=== PATIENT | male | born 1965 | race Caucasian/White ===

== ENCOUNTER 2019-04-05 13:22 | Inpatient (IN) | payer OTHER ==
[2019-04-05 17:24] VITALS: BMI 25.3
--- NOTE | 2019-04-05 19:14 | HP ---
CIWA Score Nausea/Vomitin-No Nausea/No Vomiting Muscle Tremors: None Anxiety: 4-Mod. Anxious/Guarded Agitation: 0-Normal Activity Paroxysmal Sweats: No Perspiration Orientation: 1-Uncertain about Date Tacttile Disturbances: 0-None Auditory Disturbances: 2-Mild Harshness/Frighten Visual Disturbances: 3-Moderate Sensitivity Headache: 0-None Present CIWA-Ar Total Score: 10 - Admission Criteria OASAS Guidelines: Admission for Medically Managed Detox: Requires at least one of the followin. CIWA greater than 12 2. Seizures within the past 24 hours 3. Delirium tremens within the past 24 hours 4. Hallucinations within the past 24 hours 5. Acute intervention needed for co occurring medical disorder 6. Acute intervention needed for co occurring psychiatric disorder 7. Severe withdrawal that cannot be handled at a lower level of care (continued vomiting, continued diarrhea, abnormal vital signs) requiring intravenous medication and/or fluids 8. Admission ROS [facility] Allergies/Adverse Reactions: Allergies Allergy/AdvReac Type Severity Reaction Status Date / Time peach Allergy Verified 04/05/19 17:19 peanut Allergy Verified 04/05/19 17:19 History of Present Illness: Search Terms: sadi lazaro, 1965 Search Date: 04/05/2019 07:07:10 PM This report was requested by: Neeta June | Reference #: [id number] There are no results for the search terms that you entered. pt here requesting detox from etoh use , reports daily use 2-3 pints vodka and 2 x 6-pk beer x many years , first age of use 16 , longest sobriety 4 months while incarcerated ( 2018 ) , latest use this morning , current symptoms as above . Reports he starts drinking " anytime " , reports tremors if not drinking , + w/d seizure 1 year ago , denies blackouts , + falls while intoxicated , most recently " I don't know ". Pt is poor historian , irritable/ hostile . Reports he went to [facility] ( 16 ) this morning , per pt was told there were no beds available and was referred to this facility . [facility] Det[facility] x 2 , rehab x1 denies driving . cocaine : " I don't count it , I just smoke it , I use a lot everyday " , first age of use 21 , denies IVDU cannabis : " same thing " first age of use 16 . tobacco : 1/2 ppd . denies other illicits , denies benzo use , denies buprenorphine. PMhx : asthma , COPD , GERD PSHX : denies PSych : manic depression , suicide attempts x 2 most recently 2 years ago , denies current SI / HI . SHX : homeless , unemployed Exam Limitations: Clinical Condition - Ebola screening Have you traveled outside of the country in the last 21 days: No Have you had contact with anyone from an Ebola affected area: No Do you have a fever: No - Review of Systems Constitutional: Loss of Appetite, Unintentional Wgt. Loss (reports weight loss , when askwed how much , states " I don't know ") EENT: reports: Other (denies vision loss) Respiratory: reports: Cough (cough x 1 day), SOB with Exertion Cardiac: reports: No Symptoms Reported GI: reports: See HPI, Poor Appetite : reports: No Symptoms Reported Musculoskeletal: reports: No Symptoms Reported Integumentary: reports: No Symptoms Reported Neuro: reports: No Symptoms reported Endocrine: reports: No Symptoms Reported Psychiatric: reports: Orientated x3, Agitated, Anxious Patient History - Smoking Cessation Smoking history: Current every day smoker Have you smoked in the past 12 months: Yes Hx Chewing Tobacco Use: No Initiated information on smoking cessation: No - Substances abused Alcohol Substance route: Oral Frequency: Daily Amount used: 4pints of vodka and beer mixed Age of first use: 16 Date of last use: 04/05/19 Cocaine Substance route: Inhalation Frequency: Daily Amount used: 50-100$/day Age of first use: 19 Date of last use: 04/05/19 Marijuana/Hashish Substance route: Inhalation Frequency: Daily Family Disease History - Family Disease History Family History: Denies (states he has no children) Admission Physical Exam BHS - Vital Signs Vital Signs: Vital Signs - 24 hr 04/05/19 04/05/19 17:18 17:38 Temperature 97.6 F 97.6 F Pulse Rate 73 73 Respiratory 16 16 Rate Blood Pressure 139/69 139/69 - Physical General Appearance: Yes: Mild Distress, Irritable, Anxious HEENTM: Yes: EOMI, Hearing grossly Normal, Normocephalic, Nasal Congestion, Muffled/Hoarse Voice Respiratory: Yes: No Respiratory Distress, No Accessory Muscle Use, Wheezing ( Heriberto lung arias) Neck: Yes: No masses,lesions,Nodules, Trachea in good position Cardiology: Yes: Regular Rhythm, Regular Rate, S1, S2 Abdominal: Yes: Soft, Protuberent Back: Yes: Normal Inspection Musculoskeletal: Yes: full range of Motion Extremities: Yes: Normal Range of Motion, Non-Tender Neurological: Yes: Fully Oriented, Alert, Disoriented, Depressed Affect Integumentary: Yes: Dry, Warm, Other (left gt toe and 2nd toe superificial excoriation dorsal aspect , pt states " from my other sneakers ") - Diagnostic (1) Cocaine use disorder Current Visit: Yes Status: Chronic (2) Cannabis dependence Current Visit: Yes Status: Chronic (3) Nicotine dependence Current Visit: Yes Status: Chronic Qualifiers: Nicotine product type: cigarettes (4) Alcohol withdrawal Current Visit: Yes Status: Acute Qualifiers: Complication of substance-induced condition: uncomplicated Qualified Code(s ): F10.230 - Alcohol dependence with withdrawal, uncomplicated Breathalyzer - Breathalyzer Breathalyzer: 0 Urine Drug Screen - Test Device Lot number: [id number] Expiration date: 12/31/20 - Control Is test valid?: Yes - Results Drug screen NEGATIVE: No Urine drug screen results: THC-Marijuana, ZOIE-Cocaine, BZO-Benzodiazepines, BUP- Suboxone Inpatient Rehab Admission - Rehab Decision to Admit Inpatient rehab admission?: No
[2019-04-05] MEDS ORDERED: ALBUTEROL SO4 2.5/IPRATROPIUM 0.5 INH SOL 3 ML VIAL.NEB. NEB PRN (19:36)
[2019-04-05] MEDS ORDERED: MAGNESIUM CITRATE 300 ML BOTTLE PO PRN (19:37)
[2019-04-05] MEDS ORDERED: IBUPROFEN 400 MG TABLET (FP) PO PRN (19:37)
[2019-04-05] MEDS ORDERED: BISMUTH SUBSALICYLATE 524 MG/30 ML UD PO PRN (19:37)
[2019-04-05] MEDS ORDERED: ACETAMINOPHEN 325 MG TABLET (FP) PO PRN ×2 (19:37)
[2019-04-05] MEDS ORDERED: MAGNESIUM HYDROX 2400MG/30ML ORAL SUSPENSION 30 ML CUP PO PRN (19:37)
[2019-04-05] MEDS ORDERED: guaiFENesin 200 MG/10 ML 10 ML UNIT-DOSE CUPS PO PRN (19:37)
[2019-04-05] MEDS ORDERED: MAG HYDROX/AL HYDROX/SIMETH 30 ML UNIT-DOSE CUP PO PRN (19:37)
[2019-04-05] MEDS ORDERED: P-EPHED 60MG/TRIPROLIDI 2.5MG TABLET PO PRN (19:37)
[2019-04-05] MEDS ORDERED: MENTHOL/PHENOL 1 EACH UD MM PRN (19:37)
[2019-04-05] MEDS ORDERED: NICOTINE POLACRILEX 2 MG GUM BUC PRN (19:37)
[2019-04-05] MEDS ORDERED: chlordiazePOXIDE HCL 10 MG CAPSULE PO PRN (19:41)
[2019-04-05] MEDS: THIAMINE HCL 100 MG TABLET (FP) PO SCH (22:09)
[2019-04-05] MEDS: chlordiazePOXIDE HCL 25 MG CAPSULE PO SCH (22:09)
[2019-04-05] MEDS: MELATONIN 5 MG TABLETS PO PRN (22:09)
[2019-04-05] MEDS: BACITRACIN/POLYMYXIN B SULFATE 15 GM TUBE TP SCH (22:38)
[2019-04-06] MEDS: chlordiazePOXIDE HCL 25 MG CAPSULE PO SCH ×3 (06:25→22:15)
[2019-04-06] MEDS: PRENATAL VITAMINS W/ FOLIC ACID TABLET (FP) PO SCH (09:31)
--- NOTE | 2019-04-06 11:10 | PN ---
S CIWA - CIWA Score Nausea/Vomitin-No Nausea/No Vomiting Muscle Tremors: 3 Anxiety: 3 Agitation: 4-Moderately Restless Paroxysmal Sweats: 3 Orientation: 0-Oriented Tacttile Disturbances: 0-None Auditory Disturbances: 0-None Visual Disturbances: 0-None Headache: 0-None Present CIWA-Ar Total Score: 13 BHS Progress Note (SOAP) Subjective: sweats mild shakes irritable agitation body aches Objective: 04/06/19 10:47 Vital Signs Temperature 97.7 F 04/06/19 09:10 Pulse Rate 60 04/06/19 09:10 Respiratory Rate 18 04/06/19 09:10 Blood Pressure 135/83 04/06/19 09:10 O2 Sat by Pulse Oximetry (%) labs pending aaox3 ambulating no acute distress Assessment: 04/06/19 11:10 withdrawal sx Plan: continue detox pending labs
[2019-04-06] MEDS: BACITRACIN/POLYMYXIN B SULFATE 15 GM TUBE TP SCH ×2 (11:35→22:15)
--- NOTE | 2019-04-06 11:48 | CONSULT ---
[facility] Psychiatric Consult - Data Date of interview: 04/06/19 Psychiatric History: Patient was approached at bedside. Told publicity writer:" I cannot get up right now but I will talk later"
[2019-04-06 12:17] LABS: ALBUMIN 3.1 g/dl (3.4-5.0); BILIRUBIN,TOTAL 0.3 mg/dL (0.2-1); BLOOD UREA NITROGEN 12.6 mg/dL (7-18); CALCIUM 8.8 mg/dL (8.5-10.1); CREATININE 0.9 mg/dL (0.55-1.3); TOT PROT 5.3 g/dl (6.4-8.2)
[2019-04-06 12:26] LABS: HEMATOCRIT 40.5 % (35.4-49); HEMOGLOBIN 13.5 GM/dL (11.7-16.9); MCH 32.1 pg (25.7-33.7); MCHC 33.3 g/dl (32.0-35.9); MEAN CELL VOLUME 96.3 fl (80-96); MEAN PLT VOLUME 8.3 fl (7.5-11.1); PLATELET COUNT 211 K/MM3 (134-434); RDW 15.3 % (11.9-15.9); WHITE BLOOD COUNT 5.7 K/mm3 (4.0-10.0)
[2019-04-06] MEDS: THIAMINE HCL 100 MG TABLET (FP) PO SCH (22:15)
[2019-04-06] MEDS: MELATONIN 5 MG TABLETS PO PRN (22:16)
[2019-04-07] MEDS: chlordiazePOXIDE 5 MG CAPSULE PO SCH ×3 (06:46→21:14)
--- NOTE | 2019-04-07 10:19 | PN ---
S CIWA - CIWA Score Nausea/Vomitin-No Nausea/No Vomiting Muscle Tremors: 3 Anxiety: 2 Agitation: 3 Paroxysmal Sweats: 2 Orientation: 0-Oriented Tacttile Disturbances: 0-None Auditory Disturbances: 0-None Visual Disturbances: 0-None Headache: 0-None Present CIWA-Ar Total Score: 10 S Progress Note (SOAP) Subjective: sweats shakes irritable agitation anxiety Objective: 04/07/19 10:18 Vital Signs Temperature 97.5 F L 04/07/19 09:20 Pulse Rate 54 L 04/07/19 09:20 Respiratory Rate 18 04/07/19 09:20 Blood Pressure 131/78 04/07/19 09:20 O2 Sat by Pulse Oximetry (%) Laboratory Tests 04/06/19 04/06/19 04/06/19 08:30 08:30 08:30 WBC 5.7 RBC 4.20 Hgb 13.5 Hct 40.5 MCV 96.3 H MCH 32.1 MCHC 33.3 RDW 15.3 Plt Count 211 MPV 8.3 Sodium 143 Potassium 4.0 Chloride 105 Carbon Dioxide 28 Anion Gap 11 BUN 12.6 Creatinine 0.9 Est GFR (CKD-EPI)AfAm 114.21 Est GFR (CKD-EPI)NonAf 98.54 Random Glucose 108 H Calcium 8.8 Total Bilirubin 0.3 AST 17 ALT 32 Alkaline Phosphatase 80 Total Protein 5.3 L Albumin 3.1 L RPR Titer Nonreactive labs noted aaox3 ambulating no acute distress Assessment: 04/07/19 10:18 withdrawals sx Plan: continue detox increase fluids
[2019-04-07] MEDS: PRENATAL VITAMINS W/ FOLIC ACID TABLET (FP) PO SCH (11:28)
[2019-04-07] MEDS: BACITRACIN/POLYMYXIN B SULFATE 15 GM TUBE TP SCH ×2 (11:38→22:25)
--- NOTE | 2019-04-07 17:24 | PN ---
S Progress Note Note: Patient w/ hx of manic depression declined psych consultation earlier today, but requested to see psych, he is ready to talk now. Psych consult ordered.
[2019-04-07] MEDS: hydrOXYzine PAMOATE 25 MG CAPSULE (FP) PO PRN (17:38)
[2019-04-07] MEDS: THIAMINE HCL 100 MG TABLET (FP) PO SCH (22:14)
[2019-04-07] MEDS: MELATONIN 5 MG TABLETS PO PRN (22:15)
[2019-04-08] MEDS ORDERED: chlordiazePOXIDE HCL 10 MG CAPSULE PO PRN
[2019-04-08] MEDS: chlordiazePOXIDE HCL 10 MG CAPSULE PO SCH ×3 (06:27→21:01)
[2019-04-08] MEDS: BACITRACIN/POLYMYXIN B SULFATE 15 GM TUBE TP SCH ×2 (10:42→22:01)
[2019-04-08] MEDS: PRENATAL VITAMINS W/ FOLIC ACID TABLET (FP) PO SCH (10:43)
--- NOTE | 2019-04-08 11:53 | PN ---
[facility] CIWA - CIWA Score Nausea/Vomitin-No Nausea/No Vomiting Muscle Tremors: None Anxiety: 1-Mildly Anxious Agitation: 2 Paroxysmal Sweats: No Perspiration Orientation: 0-Oriented Tacttile Disturbances: 0-None Auditory Disturbances: 0-None Visual Disturbances: 0-None Headache: 0-None Present CIWA-Ar Total Score: 3 BHS Progress Note (SOAP) Subjective: anxiety tired Objective: 04/08/19 11:52 Vital Signs Temperature 97.7 F 04/08/19 09:29 Pulse Rate 49 L 04/08/19 09:29 Respiratory Rate 20 04/08/19 09:29 Blood Pressure 121/68 04/08/19 09:29 O2 Sat by Pulse Oximetry (%) aaox3 ambulating no acute distress Assessment: 04/08/19 11:52 mild withdrawal Plan: continue detox d/c in am
[2019-04-08] MEDS: hydrOXYzine PAMOATE 25 MG CAPSULE (FP) PO PRN ×2 (13:01→22:03)
--- NOTE | 2019-04-08 15:05 | CONSULT ---
[facility] Psychiatric Consult - Data Date of interview: 04/08/19 Admission source: [facility] Identifying data: Mr Aguirre is a 53 years old single male, , unnemployed receving SSI, homeless seeking detox treatment for alcohol, cocaine and cannabis Substance Abuse History: Reports history of alcohol, cocaine and marijuana use. Refer to addiction counselor's summary for further information Medical History: Significant for bronchial asthma/COPD, GERD, history of alcohol related seizure. Smokes 10n cigarettes daily Psychiatric History: Patient was very vague in providing information. Reports being diagnosed with Bipolar Disorder a few years ago. Reports a few psychiatric hospitalizations and claimed he did not recall any location. Reports not receiving outpatient treatment and taking medication for a while. Claims he took Celexa 20 mg/day and Seroquel in the past. Reports 2 previous suicidal attempts via overdose but he was unwilling to provde much details. At present, denies experiencing psychotic, manic symptoms, S/H ideations. However, reports feeling depressed Physical/Sexual Abuse/Trauma History: This section not done due patient disposition Mental Status Exam - Mental Status Exam Alert and Oriented to: Time, Place, Person Cognitive Function: Fair Patient Appearance: Disheveled Mood: Depressed Affect: Appropriate Patient Behavior: Cooperative Speech Pattern: Clear Voice Loudness: Normal Thought Process: Intact, Goal Oriented Hallucinations: Denies Suicidal Ideation: Denies Homicidal Ideation: Denies Insight/Judgement: Poor Muscle strength/Tone: Normal Gait/Station: Normal Psychiatric Findings - Problem List ([place] 1, 2,3) (1) Mood disorder Current Visit: Yes Status: Chronic (2) Bipolar disorder Current Visit: Yes Status: Ruled-out (3) Substance induced mood disorder Current Visit: Yes Status: Acute (4) Uncomplicated alcohol dependence Current Visit: Yes Status: Chronic (5) Cocaine dependence Current Visit: Yes Status: Acute (6) Cannabis dependence Current Visit: Yes Status: Acute (7) Nicotine dependence Current Visit: Yes Status: Chronic Qualifiers: Nicotine product type: cigarettes (8) Bronchial asthma Current Visit: Yes Status: Chronic (9) COPD (chronic obstructive pulmonary disease) Current Visit: Yes Status: Chronic (10) GERD (gastroesophageal reflux disease) Current Visit: Yes Status: Chronic (11) Alcohol related seizure Current Visit: Yes Status: Resolved - Initial Treatment Plan Initial Treatment Plan: 1) Start Celexa 20 mg po daily and Seroquel 100 mg po HS. 2) Continue inpatient detoxification
[2019-04-08] MEDS: CITALOPRAM HYDROBROMIDE 20 MG TABLET (FP) PO SCH (15:39)
[2019-04-08] MEDS: THIAMINE HCL 100 MG TABLET (FP) PO SCH (22:01)
[2019-04-08] MEDS: QUEtiapine FUMARATE 100 MG TABLET (FP) PO SCH (22:01)
[2019-04-09] MEDS ORDERED: chlordiazePOXIDE HCL 10 MG CAPSULE PO ONE (05:00)
[2019-04-09] MEDS: hydrOXYzine PAMOATE 25 MG CAPSULE (FP) PO PRN ×3 (08:51→22:36)
[2019-04-09] MEDS: PRENATAL VITAMINS W/ FOLIC ACID TABLET (FP) PO SCH (11:35)
[2019-04-09] MEDS: CITALOPRAM HYDROBROMIDE 20 MG TABLET (FP) PO SCH (11:35)
[2019-04-09] MEDS: BACITRACIN/POLYMYXIN B SULFATE 15 GM TUBE TP SCH ×2 (11:35→22:33)
--- NOTE | 2019-04-09 15:19 | PN ---
S CIWA - CIWA Score Nausea/Vomitin-No Nausea/No Vomiting Muscle Tremors: None Anxiety: 2 Agitation: 0-Normal Activity Paroxysmal Sweats: 1-Minimal Palms Moist Orientation: 0-Oriented Tacttile Disturbances: 0-None Auditory Disturbances: 0-None Visual Disturbances: 0-None Headache: 0-None Present CIWA-Ar Total Score: 3 BHS Progress Note (SOAP) Subjective: c/o mild sweats and anxiety. Objective: 04/09/19 15:11 Vital Signs 04/09/19 09:13 Pulse Rate 48 L Respiratory 16 Rate Blood Pressure 120/77 Lab Results WBC 5.7 K/mm3 (4.0-10.0) 04/06/19 08:30 RBC 4.20 M/mm3 (4.00-5.60) 04/06/19 08:30 Hgb 13.5 GM/dL (11.7-16.9) 04/06/19 08:30 Hct 40.5 % (35.4-49) 04/06/19 08:30 MCV 96.3 fl (80-96) H 04/06/19 08:30 MCHC 33.3 g/dl (32.0-35.9) 04/06/19 08:30 RDW 15.3 % (11.9-15.9) 04/06/19 08:30 Plt Count 211 K/MM3 (134-434) 04/06/19 08:30 Sodium 143 mmol/L (136-145) 04/06/19 08:30 Potassium 4.0 mmol/L (3.5-5.1) 04/06/19 08:30 Chloride 105 mmol/L (98-107) 04/06/19 08:30 Carbon Dioxide 28 mmol/L (21-32) 04/06/19 08:30 Anion Gap 11 MMOL/L (8-16) 04/06/19 08:30 BUN 12.6 mg/dL (7-18) 04/06/19 08:30 Creatinine 0.9 mg/dL (0.55-1.3) 04/06/19 08:30 Random Glucose 108 mg/dL (74-106) H 04/06/19 08:30 Calcium 8.8 mg/dL (8.5-10.1) 04/06/19 08:30 Labs noted. Assessment: 04/09/19 15:11 AOX3, in no acute respiratory distress. Full ROM, ambulating in the unit. mild withdrawal symptoms. Plan: Pt was for discharge to [facility] today but no bed available at this time. Ms. Kovacs, the counselor, spoke to [facility] and they will pick pt up tomorrow (04/10/19). Pt states, he is homeless. Pt discharge changed to 04/10/19 so that pt can be picked up for the rehab in AM.
[2019-04-09] MEDS: THIAMINE HCL 100 MG TABLET (FP) PO SCH (22:33)
[2019-04-09] MEDS: MELATONIN 5 MG TABLETS PO PRN (22:33)
[2019-04-09] MEDS: QUEtiapine FUMARATE 100 MG TABLET (FP) PO SCH (22:33)
[2019-04-10 09:36] VITALS: BP 122/64; PULSE 60; TEMP 98
[2019-04-10] MEDS: PRENATAL VITAMINS W/ FOLIC ACID TABLET (FP) PO SCH (10:50)
[2019-04-10] MEDS: BACITRACIN/POLYMYXIN B SULFATE 15 GM TUBE TP SCH (10:50)
[2019-04-10] MEDS: CITALOPRAM HYDROBROMIDE 20 MG TABLET (FP) PO SCH (10:50)
--- NOTE | 2019-04-10 12:03 | DS ---
[facility] Discharge Summary Admission Date: 04/05/19 Discharge Date: 04/10/19 - History Present History: Alcohol Dependence, Cannabis Dependence, Cocaine Dependence Additional Comments: Patient completed detox successfully. As per patient, he is ready for rehab and that he will be admitted to [facility] rehab today. Patient is stable. Instructed to follow up with PCP within 1-2 weeks post discharge. Pertinent Past History: Alcohol dependence Cocaine dependence Cannabis dependence Nicotine dependence Asthma COPD - Physical Exam Results Vital Signs: Vital Signs Temperature 98 F 04/10/19 09:35 Pulse Rate 60 04/10/19 09:35 Respiratory Rate 16 04/10/19 09:35 Blood Pressure 122/64 04/10/19 09:35 O2 Sat by Pulse Oximetry (%) Pertinent Admission Physical Exam Findings: Withdrawal sxs Laboratory Tests 04/06/19 04/06/19 04/06/19 08:30 08:30 08:30 WBC 5.7 RBC 4.20 Hgb 13.5 Hct 40.5 MCV 96.3 H MCH 32.1 MCHC 33.3 RDW 15.3 Plt Count 211 MPV 8.3 Sodium 143 Potassium 4.0 Chloride 105 Carbon Dioxide 28 Anion Gap 11 BUN 12.6 Creatinine 0.9 Est GFR (CKD-EPI)AfAm 114.21 Est GFR (CKD-EPI)NonAf 98.54 Random Glucose 108 H Calcium 8.8 Total Bilirubin 0.3 AST 17 ALT 32 Alkaline Phosphatase 80 Total Protein 5.3 L Albumin 3.1 L RPR Titer Nonreactive Labs reviewed - Treatment Hospital Course: Detox Protocol Followed, Detoxed Safely, Responded well, Discharged Condition Good - Medication Discharge Medications: Ambulatory Orders NK [No Known Home Medication] 04/05/19 - Diagnosis (1) Alcohol dependence with uncomplicated withdrawal Current Visit: Yes Status: Acute (2) Cannabis dependence Current Visit: Yes Status: Chronic (3) Cocaine dependence Current Visit: Yes Status: Chronic (4) Bronchial asthma Current Visit: Yes Status: Chronic (5) COPD (chronic obstructive pulmonary disease) Current Visit: Yes Status: Chronic (6) Nicotine dependence Current Visit: Yes Status: Chronic Qualifiers: Nicotine product type: cigarettes (7) Bipolar disorder Current Visit: Yes Status: Chronic - AMA Did Patient Leave Against Medical Advice: No (Follow up with PCP within 1-2 weeks post discharge)
== END 2019-04-10 12:47 | disposition home or self-care (01) | DRG 774 ==
LOC: YASAS 13:22 → Y6N 21:28
PROVIDERS: ADMIT Surgery; ATTEND Surgery
PROC: HZ2ZZZZ Detoxification Services for Substance Abuse Treatment (ICD-10-PCS; principal; 2019-04-05)
DX: F10.230 Alcohol dependence with withdrawal, uncomplicated (principal); F14.20 Cocaine dependence, uncomplicated; F12.20 Cannabis dependence, uncomplicated; F17.210 Nicotine dependence, cigarettes, uncomplicated; F31.9 Bipolar disorder, unspecified; F39 Unspecified mood [affective] disorder; F19.24 Other psychoactive substance dependence with psychoactive substance-induced mood disorder; J44.9 Chronic obstructive pulmonary disease, unspecified; K21.9 Gastro-esophageal reflux disease without esophagitis; Z86.69 Personal history of other diseases of the nervous system and sense organs; Z91.010 Allergy to peanuts; Z59.0 Homelessness
CPT/HCPCS: 36415; 71046-TC-FY; 80053; 85027; 86593